=== PATIENT | female | born 1955 | race Caucasian/White ===

== ENCOUNTER 2018-05-10 09:06 | Emergency (ER) | payer BC, OTHER ==
[2018-05-10 09:13] VITALS: BP 180/79; PULSE 72; TEMP 98.6; BMI 31.7
[2018-05-10] MEDS ORDERED: KETOROLAC TROMETHAMINE 60 MG/2 ML VIAL IM ONE (09:31)
[2018-05-10] MEDS ORDERED: KETOROLAC TROMETHAMINE 60 MG/2 ML VIAL ONE (09:32)
--- NOTE | 2018-05-10 09:35 | PDOC ---
History of Present Illness - General Chief Complaint: Pain, Acute Stated Complaint: LT LEG INJURY Time Seen by Provider: 05/10/18 09:31 History Source: Patient, Family Exam Limitations: No Limitations (63y/o F with L knee/thigh pain after falling in her tub this morning, denies LOC or head trauma) Lower Ext. Injury Location - Specific Injury Location Hips: left hip: no evidence of injury Legs: left: bone tenderness Knees: left soft tissue tenderness Ankle: left no evidence of injury Foot: left foot no evidence of injury Extremity Pain Location - Extremity Pain Location Extremity Pain Locations: left: knee, leg Past History - Travel Traveled outside of the country in the last 30 days: No Close contact w/someone who was outside of country & ill: No - Past Medical History Allergies/Adverse Reactions: Allergies Allergy/AdvReac Type Severity Reaction Status Date / Time No Known Allergies Allergy Verified 05/10/18 09:13 Home Medications: Ambulatory Orders Ibuprofen 800 mg PO ACDIN 7 Days #21 tablet 05/10/18 COPD: No CHF: No Diabetes: Yes HTN: Yes Hypercholesterolemia: Yes - Immunization History Immunization Up to Date: No - Suicide/Smoking/Psychosocial Hx Smoking History: Unknown if ever smoked Have you smoked in the past 12 months: No Information on smoking cessation initiated: No Hx Alcohol Use: No Drug/Substance Use Hx: No Review of Systems - Review of Systems Constitutional: No: Chills, Fever Respiratory: No: Shortness of Breath Cardiac (ROS): No: Chest Pain, Lightheadedness Musculoskeletal: Yes: Joint Pain, Joint Swelling, Muscle Pain Neurological: No: Headache, Numbness *Physical Exam - Vital Signs Last Vital Signs Temp Pulse Resp BP Pulse Ox 98.6 F 72 16 180/79 H 99 05/10/18 09:09 05/10/18 09:09 05/10/18 09:09 05/10/18 09:09 05/10/18 09:09 - Physical Exam General Appearance: Yes: Nourished Respiratory/Chest: positive: Lungs Clear, Normal Breath Sounds Cardiovascular: positive: Regular Rhythm, Regular Rate, S1, S2 Extremity: positive: Normal Capillary Refill, Other (tenderness behind knee, posterior thigh, FROM in L knee, no swelling noted, distal pulse intact, limping gait) Neurologic: positive: concrete floater II-XII NML intact, Fully Oriented, Alert Moderate Sedation - Procedure Monitoring Vital Signs: Procedure Monitoring Vital Signs Temperature 98.6 F 05/10/18 09:09 Pulse Rate 72 05/10/18 09:09 Respiratory Rate 16 05/10/18 09:09 Blood Pressure 180/79 H 05/10/18 09:09 O2 Sat by Pulse Oximetry (%) 99 05/10/18 09:09 Medical Decision Making - Medical Decision Making 05/10/18 09:35 63 years old female presents with left knee and thigh pain after falling in the top this morning. Patient denies any LOC or head trauma. She reports her she hyperextended her knee. 05/10/18 10:39 X-rays were negative for fracture patient placed in a knee immobilizer anti- inflammatory for pain patient advised to follow-up primary care doctor if pain persists in a week for further imaging *DC/Admit/Observation/Transfer Diagnosis at time of Disposition: Knee pain, left Qualifiers: Chronicity: acute Qualified Code(s): M25.562 - Pain in left knee - Discharge Dispostion Disposition: HOME Condition at time of disposition: Stable Decision to Admit order: No - Prescriptions Prescriptions: Ibuprofen 800 mg PO ACDIN 7 Days #21 tablet - Referrals Referrals: Radha Flores MD [Primary Care Provider] - - Patient Instructions Additional Instructions: X-rays were negative today for any fractures These keep leg elevated take Motrin as needed for pain. Follow-up with her primary care doctor or orthopedic of his choice in about a week if pain persists. You may return to the emergency room if worsening pain - Post Discharge Activity
== END 2018-05-10 11:05 | disposition home or self-care (01) ==
LOC: JERFT 09:06
PROC: 3E0233Z Introduction of Anti-inflammatory into Muscle, Percutaneous Approach (ICD-10-PCS; principal; 2018-05-10)
DX: M25.562 Pain in left knee (principal); W18.2XXA Fall in (into) shower or empty bathtub, initial encounter; Y93.E1 Activity, personal bathing and showering; Y92.012 Bathroom of single-family (private) house as the place of occurrence of the external cause; Y99.8 Other external cause status; I10 Essential (primary) hypertension; E78.00 Pure hypercholesterolemia, unspecified; E11.9 Type 2 diabetes mellitus without complications
CPT/HCPCS: 73552-TC-LT-FY; 73562-TC-LT-FY; 73590-TC-LT-FY; 99281-25